=== PATIENT | female | born 1975 | race Caucasian/White ===

== ENCOUNTER 2016-11-21 21:23 | Emergency (ER) | payer OTHER ==
--- NOTE | ~2016-11-21 | CR93 ---
[facility]. [facility] A Service of [facility] & [facility] RADIOLOGY TEXT RESULTS PATIENT: MASSIMO RAJAN LOCATION: SED : 75 UNIT #: [id number] AGE: [address]: Flor Nath SEX: F ORDER DR: [id number] [address] [address] [id number] E MR#: [id number] Acc #: [id number] NAME: MASSIMO RAJAN : 1975 SEX: F STUDY DATE/TIME: 11/21/2016 21:18 UNIT: SED ROOM: STUDY DESCRIPTION: CR Elbow Min 3 Views Lt Attending Physician: Flor Nath Pa-C Ordering Physician: Jesus Sanchez M.D. MEDICAL IMAGING REPORT This report is preliminary unless electronic signature is present. EXAM Left elbow 11/21/2016 INDICATIONS 41-year-old female with elbow pain for 3-4 days. No known injury. Severe pain, numbness and tingling in the left elbow. TECHNIQUE 3 views. No comparisons. FINDINGS The examination is negative. There is no acute fracture, no joint effusion. Minimal spurring associated with the ulna on the lateral projection. IMPRESSION 1. Minimal degenerative change, otherwise negative. Dictated by... Narinder Sam M.D. THIS IS AN ELECTRONICALLY VERIFIED REPORT Narinder Sam M.D. at 11/22/2016 5:13 PM NOEL/brad TD: 11/22/2016 02:13 JOB #: [id number] MEDICAL IMAGING REPORT Page 1 of 1
[~2016-11-21 21:23] MED LIST: ALBUTEROL17 GM INH; FLEXERIL PO; FLONASE 0.05% N16 GM; GLUCOPHAGE500 MG PO; ZYRTEC10 M1 PO
[2016-12-04] MEDS ORDERED: QVAR8.7 G1 (07:42)
[2016-12-04] MEDS ORDERED: DELTASONE20 MG PO (07:43)
[2016-12-04] MEDS ORDERED: ALBUTEROL17 GM INH (07:43)
== END 2016-11-21 22:55 | disposition home or self-care (01) ==
LOC: SED 21:23
DX: M77.9 Enthesopathy, unspecified (principal); J44.9 Chronic obstructive pulmonary disease, unspecified; F17.200 Nicotine dependence, unspecified, uncomplicated; G56.03 Carpal tunnel syndrome, bilateral upper limbs; Z90.49 Acquired absence of other specified parts of digestive tract
CPT/HCPCS: 73080; 99283

== ENCOUNTER 2016-12-04 08:05 | Emergency (ER) | payer OTHER ==
[~2016-12-04 08:05] MED LIST changes: +DELTASONE20 MG PO; +QVAR8.7 G1
== END 2016-12-04 08:31 | disposition home or self-care (01) ==
LOC: SED 08:05
DX: M77.9 Enthesopathy, unspecified (principal); F17.200 Nicotine dependence, unspecified, uncomplicated; Z79.899 Other long term (current) drug therapy; Z88.1 Allergy status to other antibiotic agents
CPT/HCPCS: 99283